=== PATIENT | female | born 1980 | race American Indian/Alaskan Native ===

== ENCOUNTER 2017-01-29 15:33 | Inpatient (IN) | payer MEDICAID ==
[2017-01-29] MEDS ORDERED: ZOFRAN IV PRN (23:00)
[2017-01-29 23:49] LABS: Basophils % (Auto) 0.4 % (0.0-1.8); Eosinophils % (Auto) 0.7 % (0.0-4.3); Hematocrit 29.4 % (30.3-42.9); Mean Corpuscular HGB Conc 34 % (30-34); Mean Corpuscular Hemoglobin 27 pg (28-32); Mean Corpuscular Volume 79 fl (79-97); Platelet Count 285 K/mm3 (140-440); Red Blood Count 3.72 M/mm3 (3.65-5.03); Red Cell Distribution Width 13.1 % (13.2-15.2)
[2017-01-30 00:08] LABS: Amylase 102 units/L (27-131); Anion Gap 21 mmol/L; BUN/Creatinine Ratio 16.66; Blood Urea Nitrogen 10 mg/dL (7-17); Calcium 8.9 mg/dL (8.4-10.2); Carbon Dioxide 18 mmol/L (22-30); Chloride 96.7 mmol/L (98-107); Glucose 85 mg/dL (65-100); Lipase 33 units/L (13-60); Potassium 3.5 mmol/L (3.6-5.0); Sodium 132 mmol/L (137-145)
--- NOTE | 2017-01-30 00:19 | Short Stay Summary ---
Short Stay Documentation Date of service: 01/30/17 Narrative H&P: Pt is a 36yo EDC 08/31/17; EGA 10 weeks presents complaining of persistent nausea and vomiting, unable to keep anything down despite PO reglan. - History Principal diagnosis: Hyperemesis gravidarum H&P: obtained from office Past Medical History: pulmonary embolism (2011) Social history: no significant social history, - Allergies and Medications Current Medications: Allergies No Known Allergies Allergy (Verified 08/26/15 10:21) Home Medications Medication Instructions Recorded Confirmed Last Taken Type Cephalexin [Keflex] 500 mg PO Q6HR #28 capsule 08/22/15 08/26/15 08/26/15 09:00 Rx Vit-Fe Fumar-FA [ 1 tab PO QDAY #90 tablet 08/22/15 08/26/15 09:00 Rx Vitamin] Active Medications Dextrose/Lactated Ringer's (D5lr) 1,000 mls @ 500 mls/hr IV DIRECT ALINE Stop: 01/30/17 03:00 Dextrose/Lactated Ringer's (D5lr) 1,000 mls @ 150 mls/hr IV DIRECT ALINE Metoclopramide HCl (Reglan) 10 mg IV Q6HR ALINE Multivitamins/Iron/Calcium ( Vitamin) 1 each PO QDAY ALINE Ondansetron HCl (Zofran) 4 mg IV Q6H PRN PRN Reason: N/V unrelieved by Reglan Promethazine HCl (Phenergan) 25 mg IL Q6HR ALINE - Physical exam General appearance: mild distress Integumentary: no rash HEENT: Atraumatic Lungs: Clear to auscultation Breasts: deferred Heart: Regular rate Gastrointestinal: normal Female Genitourinary: deferred Rectal Exam: deferred Extremities: No edema Neurological: Normal gait, Normal speech - Hospital course Hospital course: Unremarkable. Pt was begun on IV hydration and IV antiemetics, and quickly improved with IL Phenergan. Her diet was increased to a regular diet, and therefore was discharged to home by HD#2 in stable condition. - Disposition Condition at discharge: Good Disposition: DISCHARGED TO HOME OR SELFCARE - Discharge Diagnoses (1) Hyperemesis gravidarum Status: Resolved Short Stay Discharge Plan Activity: no restrictions Diet: regular Follow up with: KEISHA TOMAS MD [Primary Care Provider] - 3 Days Prescriptions: Ondansetron [Zofran Odt] 4 mg PO Q8HR #20 tab.rapdis Promethazine [Phenergan SUPPOS] 25 mg IL Q6HR #30 supp.rect
[2017-01-30] MEDS: PHENERGAN PR SCH ×5 (00:20→23:43)
[2017-01-30] MEDS: REGLAN IV SCH ×5 (00:30→23:44)
[2017-01-30] MEDS: D5LR 1,000 ML IV SCH ×5 (02:40→19:43)
[2017-01-30 03:05] LABS: Bacteria,Urine 1+ /HPF (Negative); Bilirubin,Urine NEG (Negative); Blood,Urine NEG (Negative); Ketones,Urine TR mg/dL (Negative); Leukocyte Esterase,Urine MOD (Negative); Mucus,Urine 1+ /HPF; Nitrite,Urine NEG (Negative); Protein,Urine <15 mg/dL mg/dL (Negative); Urobilinogen,Urine < 2.0 mg/dL (<2.0)
[2017-01-30] MEDS ORDERED: PRENATAL VITAMIN PO SCH (10:00)
[2017-01-31] MEDS: D5LR 1,000 ML IV SCH (02:42)
[2017-01-31] MEDS: REGLAN IV SCH (05:48)
[2017-01-31] MEDS: PHENERGAN PR SCH (05:48)
--- NOTE | 2017-01-31 08:58 | Admit Criteria Form ---
Admission Criteria Documentation: HYPEREMESIS GRAVIDARUM Clinical Indications for Admission to Inpatient Care ( Place 'X' for any and all applicable criteria): Admission is indicated for ANY ONE of the following (1)(2)(3) [ ]I. Suspected serious gastrointestinal pathology (eg, acute fatty liver of , pancreatitis) as indicated by ANY ONE of the following (5)(6): [ ]a) Significantly elevated serum transaminase or bilirubin (eg, 2 or 3 times normal) [ ]b) Elevated serum amylase or lipase [ ]c) Elevated serum ammonia level [ ]d) Coagulopathy (eg, elevated PT, PTT) [ ]e) Ascites [ ]f) Encephalopathy [X]II. Inpatient admission required rather than observation care (Also use Hyperemesis Gravidarum: Observation Care as appropriate) because of ANY ONE of the following (7) : [ ]a) Hemodynamic instability develops [X]b) Vomiting that is severe or persistent [ ]c) Severe electrolyte abnormalities requiring inpatient care [ ]d) Metabolic disorder (eg, acidosis) that is severe or persistent [ ]e) Acute renal failure [ ]f) Altered mental status or medication side effects (eg, antiemetics) that are severe or persistent [ ]g) compromise identified [ ]h) Hydatidiform mole identified [ ]i) IV fluid to replace significant ongoing (eg, for over 24 hrs) losses (> 3 L/m2 per day) [ ]j) Parenteral nutrition regimen that must be implemented on inpatient basis [ ]k) Other condition, treatment or monitoring requiring inpatient admission Extended stay beyond goal length of stay may be needed for(2)(13): [ ]a) Severe electrolyte disorder that persists [ ]b) Severe malnutrition [ ]c) Acute fatty liver of [ ]d) Hydatidiform mole [ ]e) Wernicke encephalopathy or other [employer] complication (eg, osmotic demyelination syndrome) [ ]f) compromise The original [employer] content created by [employer] has been revised. The portions of the content which have been revised are identified through the use of italic text or in bold, and [facility] has neither reviewed nor approved the modified material. All other unmodified content is copyright [facility]. Please see references footnoted in the original [facility] edition 2016 Admission Criteria Met: Yes
[2017-01-31 09:31] VITALS: BP 102/50
== END 2017-01-31 10:43 | disposition home or self-care (01) | DRG 781 ==
LOC: UNDOADMOB 15:33 → 3A 15:33 → OB 22:41 → OBSVTOIN 22:41
PROVIDERS: ADMIT Obstetrics & Gynecology; ATTEND Obstetrics & Gynecology
DX: O21.0 Mild hyperemesis gravidarum (principal); Z3A.10 10 weeks gestation of pregnancy
CPT/HCPCS: 36415; 80048; 81001; 82150; 83690; 84443; 85025; J2765; J7121

== ENCOUNTER 2017-06-04 13:07 | Outpatient (CLI) | payer OTHER ==
[2017-06-04 13:51] VITALS: BP 101/63
[2017-06-04 15:25] LABS: Bilirubin,Urine NEG (Negative); Blood,Urine NEG (Negative); Ketones,Urine NEG (Negative); Leukocyte Esterase,Urine TR (Negative); Mucus,Urine 1+ /HPF; Nitrite,Urine NEG (Negative); Protein,Urine <15 mg/dL mg/dL (Negative); Urobilinogen,Urine < 2.0 mg/dL (<2.0)
[2017-06-04] MEDS ORDERED: TYLENOL PO ONE (16:00)
--- NOTE | 2017-06-04 16:01 | Progress Note ---
Assessment and Plan A: at 27 weeks, 5 days gestation. Round ligament pain. P: Discharge patient to home. Advised patient to use maternity belt/belly belt for comfort when she is standing or walking. Advised patient to rest more on her side. Discussed comfort measures such as warm bath or shower. Advised patient to return promptly if symptoms continue or worsen or if she has any other symptoms. Warning signs discussed with pt. Advised pt. to follow up at her scheduled appointment with [facility]. Subjective - Subjective Date of service: 06/04/17 Principal diagnosis: at 27 weeks, 5 days gestation; round ligament pain Interval history: 36 year old female presents at 27 weeks, 5 days gestation complaining of bilateral stretching/cramping type pains at location of round ligaments. Patient denies contractions. She denies vaginal bleeding or leaking of fluid or discharge. Patient reports active movement. She denies falls or abdominal trauma. She denies urinary symptoms. Patient sees [facility] for her care and she states she has an appointment there next week. Patient reports: movement normal, no loss of fluid, no vaginal bleeding, no contractions Objective - Vital Signs Vital Signs: Vital Signs - 12hr 06/04/17 06/04/17 06/04/17 13:42 13:46 13:51 Pulse Rate 93 H 94 H 99 H Respiratory Rate Blood Pressure 101/63 O2 Sat by Pulse 100 100 Oximetry 06/04/17 06/04/17 06/04/17 13:56 14:01 14:06 Pulse Rate 101 H 76 90 Respiratory Rate Blood Pressure O2 Sat by Pulse 100 100 100 Oximetry 06/04/17 06/04/17 06/04/17 14:11 14:15 14:16 Pulse Rate 91 H 95 H 95 H Respiratory 20 Rate Blood Pressure O2 Sat by Pulse 100 100 100 Oximetry 06/04/17 06/04/17 06/04/17 14:21 14:26 14:28 Pulse Rate 89 76 82 Respiratory Rate Blood Pressure O2 Sat by Pulse 100 100 77 L Oximetry 06/04/17 14:31 Pulse Rate 84 Respiratory Rate Blood Pressure O2 Sat by Pulse 100 Oximetry - Exam Breasts: deferred Abdomen: Present: normal appearance, soft. Absent: distention, tenderness, guarding, rigidity Uterus: Present: normal, fundal height above umbilicus FHR: category 1 (appropriate for gestational age) Uterine Contraction Monitor Mode: External Uterine Contraction Pattern: Absent - Labs Labs: Laboratory Results - last 24 hr 06/04/17 14:10 Urine Color Yellow Urine Turbidity Clear Urine pH 6.0 Ur Specific [place] 1.027 Urine Protein <15 mg/dl Urine Glucose (UA) Neg Urine Ketones Neg Urine Blood Neg Urine Nitrite Neg Urine Bilirubin Neg Urine Urobilinogen < 2.0 Ur Leukocyte Esterase Tr Urine WBC (Auto) 2.0 Urine RBC (Auto) 1.0 U Epithel Cells (Auto) 8.0 Urine Mucus 1+
== END 2017-06-04 15:55 | disposition home or self-care (01) ==
LOC: TRG 13:07
PROVIDERS: ATTEND Obstetrics & Gynecology
DX: O09.523 Supervision of elderly multigravida, third trimester (principal); O47.02 False labor before 37 completed weeks of gestation, second trimester; Z3A.28 28 weeks gestation of pregnancy
CPT/HCPCS: 59025; 81001

== ENCOUNTER 2017-08-03 01:05 | Outpatient (CLI) | payer OTHER ==
[2017-08-03 01:26] VITALS: BP 110/77
== END 2017-08-03 02:30 | disposition home or self-care (01) ==
LOC: TRG 01:05
PROVIDERS: ATTEND Obstetrics & Gynecology
DX: O09.523 Supervision of elderly multigravida, third trimester (principal); O26.893 Other specified pregnancy related conditions, third trimester; R25.2 Cramp and spasm; Z3A.36 36 weeks gestation of pregnancy

== ENCOUNTER 2017-08-06 05:24 | Inpatient (IN) | payer OTHER ==
[2017-08-06] MEDS ORDERED: LACTATED RINGERS 1,000 ML IV ONE (05:58)
[2017-08-06] MEDS ORDERED: POLYCILLIN/NS 2 GM/100 ML 2 GM/100 ML BAG IV ONE (07:57)
[2017-08-06] MEDS ORDERED: XYLOCAINE 2% INFILTRATI ONE (07:57)
[2017-08-06] MEDS ORDERED: SUBLIMAZE IV PRN (07:57)
[2017-08-06] MEDS ORDERED: LACTATED RINGERS 1,000 ML IV SCH (08:00)
[2017-08-06 08:30] LABS: Hemoglobin 7.9 gm/dl (10.1-14.3); Mean Corpuscular HGB Conc 32 % (30-34); Mean Corpuscular Volume 76 fl (79-97); Platelet Count 230 K/mm3 (140-440); Red Blood Count 3.29 M/mm3 (3.65-5.03); White Blood Count 7.2 K/mm3 (4.5-11.0)
[2017-08-06 08:36] LABS: Mean Corpuscular Hemoglobin 24 pg (28-32)
--- NOTE | 2017-08-06 08:46 | History and Physical Report ---
History of Present Illness Date of examination: 08/06/17 Date of admission: 08/06/17 06:43 Chief complaint: Regular contractions; labor. History of present illness: 37 year old female presents to L&D with regular contractions since last night. Patient denies leaking of fluid or vaginal bleeding. Patient reports active movement. Patient has seen [facility] for her care ; no records available in L&D today. Patient reports she has seen [facility] during this due to history of PE and heart failure with her last ( she states she spent 3 months in the ICU after her PE). Pt. states she has seen chart snatcher during her and all was OK with her heart. She states she has been taking Lovenox during the but ran out about a week ago so hasn't had it in a week. Patient denies any leg pain, chest pain, shortness of breath, or cough. Patient states she also has had a marginal cord insertion and polyhydramnios during the . She states she had a positive quad screen ( increased risk for Down Syndrome) but did not have an amnio done. Past History Past Medical History: other (PE with her last and heart failure after delivery) Past Surgical History: no surgical history [facility] History: denies: herpes Family/Genetic History: diabetes, heart disease, hypertension, other (several family members with blood clots; her father of a blood clot) Social history: lives with family, full code. denies: smoking, alcohol abuse, prescription drug abuse, IV drug use - Obstetrical History Expected Date of Delivery: 08/23/17 Actual Gestation: 37 Week(s) 4 Day(s) : 7 Para: 3 Hx # Term Pregnancies: 3 Number of Pregnancies: 0 Spontaneous Abortions: 2 Induced : 1 (Therapeutic at 18 weeks due to PE) Number of Living Children: 3 Medications and Allergies Allergies Allergy/AdvReac Type Severity Reaction Status Date / Time No Known Allergies Allergy Verified 06/04/17 13:42 Home Medications Medication Instructions Recorded Confirmed Last Taken Type Enoxaparin [Lovenox] 40 mg SQ QDAY 06/04/17 06/04/17 05/31/17 09:00 History 1 Active Meds: Active Medications Fentanyl (Sublimaze) 100 mcg IV Q2H PRN PRN Reason: Labor Pain Ampicillin Sodium (Polycillin/Ns 2 Gm/100 Ml) 2 gm in 100 mls @ 100 mls/hr IV ONCE ONE PRN Reason: Protocol Stop: 08/06/17 08:56 Lactated Ringer's (Lactated Ringers) 1,000 mls @ 125 mls/hr IV DIRECT ALINE Oxytocin/Sodium Chloride (Pitocin/Ns 20 Unit/1000ml Drip) 20 units in 1,000 mls @ 125 mls/hr IV DIRECT ALINE Ampicillin Sodium (Polycillin/Ns 1 Gm/50 Ml) 1 gm in 50 mls @ 100 mls/hr IV Q4H ALINE PRN Reason: Protocol Mineral Oil (Mineral Oil) 30 ml PO QHS PRN PRN Reason: Constipation Review of Systems All systems: negative (contractions) - Vital Signs Vital signs: Vital Signs Pulse BP 111 H 128/78 08/06/17 05:47 08/06/17 05:47 Temp Pulse Resp BP Pulse Ox 110 H 128/79 08/06/17 07:07 08/06/17 07:07 - Physical Exam Cardiovascular: Regular rate, Normal S1, Normal S2 Lungs: Positive: Clear to auscultation Abdomen: Positive: normal appearance, soft. Negative: distention, tenderness, guarding, rigidity Genitourinary (Female): Positive: normal external genitalia (no lesions noted on careful exam with bright light upon admission). Negative: perineal/vulvar lesions Vagina: Positive: normal moisture Cervix: Positive: other (4/60/-2/cephalic/BBOW) Uterus: Positive: enlarged. Negative: tender Anus/Rectum: Positive: normal perianal skin Extremities: Positive: normal. Negative: tenderness, edema - Obstetrical FHR: category 1 Uterine Contraction Monitor Mode: External Cervical Dilatation: 4 Cervical Effacement Percentage: 70 station: -2 Uterine Contraction Pattern: Regular Results Result Diagrams: 08/06/17 07:05 Abnormal lab results 08/06/17 Range/Units 07:05 RBC 3.29 L (3.65-5.03) M/mm3 Hgb 7.9 L (10.1-14.3) gm/dl Hct 25.0 L (30.3-42.9) % MCV 76 L (79-97) fl MCH 24 L (28-32) pg RDW 16.0 H (13.2-15.2) % All other labs normal. Assessment and Plan A: at 37 weeks, 4 days gestation. Labor. History of PE with her last . History of heart failure associated with PE at last . P: Admit patient. GBS prophylaxis since no records available. Continuous EFM. SCDs. Patient will need Lovenox DVT prophylaxis beginning on day after delivery. Consulted with Dr. Wesley re: patient due to her history of PE and associated heart failure.
--- NOTE | 2017-08-06 09:47 | Event Note ---
Date: 08/06/17 Cervix 4.5/70/-2. Category 1 heart rate tracing. Patient is feeling well. No complaints. Tolerating contractions well; plans to go natural.
[2017-08-06 10:41] LABS: Alanine Aminotransferase 7 units/L (7-56); Albumin 3.1 g/dL (3.9-5); Albumin/Globulin Ratio 1.2 %; Alkaline Phosphatase 112 units/L (35-129); Anion Gap 23 mmol/L; BUN/Creatinine Ratio 18; Blood Urea Nitrogen 7 mg/dL (7-17); Calcium 8.3 mg/dL (8.4-10.2); Carbon Dioxide 17 mmol/L (22-30); Chloride 102.6 mmol/L (98-107); Glucose 69 mg/dL (65-100); Potassium 4.1 mmol/L (3.6-5.0); Sodium 138 mmol/L (137-145); Total Protein 5.6 g/dL (6.3-8.2)
[2017-08-06] MEDS ORDERED: POLYCILLIN/NS 1 GM/50 ML 1 GM/50 ML BAG IV SCH (12:00)
--- NOTE | 2017-08-06 13:17 | Event Note ---
Date: 08/06/17 Patient requests augmentation of labor. SVE /-1/BBOW. Patient declines SROM. She states she would like to receive Pitocin for augmentation of labor. Discussed with patient risks and benefits of Pitocin augmentation of labor. Patient consented to Pitocin augmentation of labor.
[2017-08-06] MEDS ORDERED: PITOCin/NS 30 UNIT/500ML 30 UNITS/500 ML BAG IV SCH (14:00)
--- NOTE | 2017-08-06 15:38 | Event Note ---
Date: 08/06/17 Applied FSE to better trace heart rate with patient in various positions. Large amount of clear fluid obtained. Cervix is 7/80/-1. Pitocin at 4 milliunits per minute. Uterus palpates soft between contractions. Category 1 heart rate tracing. Fetus in OP position. Will change patient's position frequently to expedite delivery. T 98.8. Vital signs stable. Patient has received 2 doses of Ampicillin for GBS prophylaxis.
[2017-08-06] MEDS: PITOCin/NS 20 UNIT/1000ML DRIP 20 UNITS/1,000 ML BAG IV SCH ×2 (16:55→18:08)
--- NOTE | 2017-08-06 17:42 | Procedure Note ---
OB Delivery Note - Delivery Date of Delivery: 08/06/17 - Vaginal Delivery presentation: vertex Delivery position: OP Delivery augmentation: rupture of membranes, pitocin Delivery monitor: external FHT, external uterine, internal FHT Route of delivery: Delivery placenta: spontaneous Delivery cord: 3 umbilical vessels Episiotomy: none Delivery laceration: none Anesthesia: none Delivery comments: of liveborn female infant over intact perineum at 16:46 weighing 6 lb. 1 oz. with apgars of 8/9. No anesthesia. head delivered easily OP; poor maternal pushing effort for shoulders so posterior arm was delivered to enable delivery of anterior shoulder; this was followed promptly and without difficulty by delivery of baby's body. Baby placed on maternal abdomen and was bulb suctioned, dried, and stimulated. Baby required further suctioning so 3 vessel cord was double clamped and cut and baby was taken to radiant warmer and suctioned. NICU called to room to evaluate baby due to mild retractions noted at warmer. Spontaneous delivery of intact placenta and membranes by vitale mechanism; marginal cord insertion noted. EBL 300 ml. No lacerations noted on careful inspection of vulva and perineum. Vaginal sweep negative. Patient began complaining of right leg pain a few minutes after delivery. Stat venous doppler of RLE ordered and US contacted. Tech called back and stated no one is compensation and benefits administrator for venous doppler US from 5 PM tonight until 8 AM tomorrow. Consulted with Dr. Wesley re: patient's right leg pain and no venous doppler US available tonight. Dr. Wesley orders to give patient heparin 5,000 units SQ daily starting now. Discussed this plan with patient; risks and benefits of receiving heparin discussed with patient. Patient consented to the administration of heparin now.
[2017-08-06] MEDS ORDERED: HEPARIN SUB-Q SCH (18:00)
[2017-08-06] MEDS ORDERED: SODIUM CHLORIDE FLUSH SYRINGE 10 ML IV NR (18:00)
[2017-08-06] MEDS: NORCO 5/325 PO PRN (18:05)
[2017-08-06 20:21] LABS: HIV-1 Antigen p24 Non React (Non React); HIVR-1/2 Ab Non React (Non React)
[2017-08-06] MEDS ORDERED: TYLENOL PO PRN (21:48)
[2017-08-06] MEDS ORDERED: MINERAL OIL PO PRN (22:00)
[2017-08-06] MEDS: MOTRIN PO SCH (22:02)
[2017-08-06] MEDS: LOVENOX SUB-Q SCH (22:03)
[2017-08-06] MEDS: FEOSOL PO SCH (22:03)
[2017-08-06] MEDS: COLACE PO SCH (22:03)
[2017-08-07] MEDS: MOTRIN PO SCH ×3 (04:05→23:02)
[2017-08-07 07:04] LABS: Hemoglobin 6.7 gm/dl (10.1-14.3)
[2017-08-07] MEDS: COLACE PO SCH ×2 (10:57→21:46)
[2017-08-07] MEDS: NORCO 5/325 PO PRN ×2 (10:57→17:46)
[2017-08-07] MEDS: FEOSOL PO SCH ×3 (10:57→21:46)
--- NOTE | 2017-08-07 17:36 | Progress Note ---
Assessment and Plan A: PPD 1 Severe Anemia - symptomatic P: Continue current management Infed 100mg IM x1 ordered Repeat H&H 08/08/17 Subjective - Subjective Date of service: 08/07/17 Principal diagnosis: Spontaneous Vaginal Delivery Interval history: Reports mild dizziness when ambulating. No assistance needed. She denies leg pain today Patient reports: appetite normal, voiding normally, pain well controlled, ambulating normally : doing well, nursing well Objective - Vital Signs Latest vital signs: Vital Signs Temp Pulse Resp BP BP BP Pulse Ox 08/07/17 16:23 98.4 F 84 18 115/70 08/07/17 12:34 97.5 F L 81 18 119/71 08/07/17 08:41 98.9 F 84 18 123/74 98 08/07/17 05:00 98.1 F 75 20 116/72 08/07/17 00:43 97.9 F 92 H 20 119/68 08/06/17 19:35 98 F 82 20 110/75 08/06/17 18:39 82 119/65 08/06/17 18:29 84 136/63 08/06/17 18:19 81 134/63 08/06/17 18:09 86 138/71 08/06/17 17:58 80 141/69 08/06/17 17:48 85 137/78 08/06/17 17:39 86 138/70 Intake and Output 08/07/17 08/07/17 08/07/17 07:59 15:59 23:59 Intake Total 480 480 Output Total 500 300 Balance -500 180 480 Intake: Oral 480 480 Output: Urine 500 300 Void 500 300 Other: Total, Intake Amount 120 480 Total, Output Amount 500 300 - Exam Breasts: Present: deferred Cardiovascular: Present: Regular rate, Normal S1, Normal S2 Lungs: Present: Clear to auscultation, Normal air movement Abdomen: Present: normal appearance, soft Vulva: both: normal Uterus: Present: normal, firm, fundal height below umbilicus Extremities: Present: normal Deep Tendon Reflex Grade: Normal +2 - Labs Labs: Abnormal lab results 08/07/17 Range/Units 06:40 Hgb 6.7 L (10.1-14.3) gm/dl Hct 21.0 L (30.3-42.9) %
[2017-08-07] MEDS ORDERED: INFED IM ONE (18:36)
[2017-08-07] MEDS: LOVENOX SUB-Q SCH (21:45)
[2017-08-08] MEDS: MOTRIN PO SCH ×2 (05:24→12:26)
[2017-08-08 06:39] LABS: Hematocrit 21.4 % (30.3-42.9); Hemoglobin 7.1 gm/dl (10.1-14.3)
--- NOTE | 2017-08-08 09:11 | Progress Note ---
Assessment and Plan A: PPD #2 - stable P; Discharge home today Subjective - Subjective Date of service: 08/08/17 Principal diagnosis: Spontaneous Vaginal Delivery Patient reports: appetite normal : doing well Objective - Vital Signs Latest vital signs: Vital Signs Temp Pulse Resp BP BP 08/07/17 23:12 98.2 F 63 18 118/61 08/07/17 16:23 98.4 F 84 18 115/70 08/07/17 12:34 97.5 F L 81 18 119/71 Intake and Output 08/07/17 08/08/17 08/08/17 22:59 06:59 14:59 Intake Total 480 840 Balance 480 840 Intake: Oral 480 480 Intake, Free Water 360 Other: Total, Intake Amount 480 480 # Voids Void 2 - Exam Breasts: Present: deferred Cardiovascular: Present: Regular rate Abdomen: Present: soft Vulva: both: normal Uterus: Present: fundal height below umbilicus Extremities: Present: normal Deep Tendon Reflex Grade: Normal +2 - Labs Labs: Abnormal lab results 08/08/17 Range/Units 05:50 Hgb 7.1 L (10.1-14.3) gm/dl Hct 21.4 L (30.3-42.9) %
--- NOTE | 2017-08-08 09:12 | Discharge Summary ---
Providers - Providers Date of Admission: 08/06/17 06:43 Date of discharge: 08/08/17 Attending physician: IVÁN HERMAN MD Primary care physician: IVÁN HERMAN MD Hospitalization Reason for admission: active labor Delivery: Episiotomy: none Laceration: none Incision: normal Other procedures: none complications: none Discharge diagnosis: IUP at term delivered Lucile baby: female Condition at discharge: Good Disposition: DC-01 TO HOME OR SELFCARE Plan - Provider Discharge Summary Activity: routine, no sex for 6 weeks, no strenuous exercise Diet: routine Instructions: routine Additional instructions: [] Smoking cessation referral if applicable(refer to patient education folder for contact #) [] Refer to [facility] Booklet Call your doctor immediately for: * Fever > 100.5 * Heavy vaginal bleeding ( >1 pad per hour) * Severe persistent headache * Shortness of breath * Reddened, hot, painful area to leg or breast * Drainage or odor from incision. * Keep incision clean and dry at all times and follow doctor's instructions regarding bathing/showering - Follow up plan Follow up: IVÁN HERMAN MD [Primary Care Provider] - 6 Weeks
[2017-08-08] MEDS: FEOSOL PO SCH (12:26)
[2017-08-08] MEDS: COLACE PO SCH (12:27)
[2017-08-08 19:03] VITALS: BP 126/71
== END 2017-08-08 17:55 | disposition home or self-care (01) | DRG 774 ==
LOC: TRG 05:24 → LD 06:43 → OB 19:15
PROVIDERS: ADMIT Obstetrics & Gynecology; ATTEND Obstetrics & Gynecology
PROC: 10E0XZZ Delivery of Products of Conception, External Approach (ICD-10-PCS; principal; 2017-08-06)
DX: O99.42 Diseases of the circulatory system complicating childbirth (principal); O40.3XX0 Polyhydramnios, third trimester, not applicable or unspecified; Z3A.37 37 weeks gestation of pregnancy; Z37.0 Single live birth; I50.9 Heart failure, unspecified; O90.81 Anemia of the puerperium; D64.9 Anemia, unspecified; O69.89X0 Labor and delivery complicated by other cord complications, not applicable or unspecified
CPT/HCPCS: 36415; 80053; 85014; 85018; 85027; 86592; 86706; 86762; 86850; 86900; 86901; 87806; 88307; 99211; G0463; J0290; J1644; J1650; J1750; J2590; J7120